=== PATIENT | female | born 1945 | race Caucasian/White ===

== ENCOUNTER 2019-06-05 16:31 | Emergency (ER) | payer OTHER ==
[~2019-06-05] VITALS: Ht 157.5 cm; Wt 72.1 kg
[~2019-06-05 16:31] MED LIST: ACLI400A3 IH; ALBU2.5V8 IH; AMLO5TAB10 PO; ASPI-482 PO; ASPI325T8 PO; CLONAZEPAM1 MG PO; FURO40TA4 PO; IBUP1TAB12 PO; Ipratropium/Albuterol Sulfate NEB; LEVO25TA4 PO; LEVO500T59 PO; LEVO50TA PO; LEVO750T31 PO; LISI-338 PO; LISI30TA4 PO; LOPE-101 PO; LORA0.5T96 PO; LORA1TAB PO; OMEP40CA45 PO; POTA10TA12 PO; POTA500T5 PO; PRAV80TA2 PO; PRED-220 PO; PRED50TA PO; SERT100T PO; SOTA80TA48 PO; metoprolol PO
[2019-06-05] MEDS ORDERED: FUROSEMIDE 40 MG/4 ML VIAL. IVP STA (16:55)
[2019-06-05] MEDS ORDERED: IPRATRPIUM/ALBUTEROL 0.5/2.5MG 3 ML NEBU. NEB STA (16:55)
--- NOTE | 2019-06-05 17:00 | PHYS DOC ---
Past Medical History Past Medical History: High Cholesterol, Hypertension, Hypothyroid, Pneumonia (SUSAN CHIU APRN) Past Surgical History: Hysterectomy Additional Past Surgical Histo: " MESH" BILATERAL CAROTID ARTERIES (SUSAN CHIU APRN) Alcohol Use: None Drug Use: None (SUSAN CHIU APRN) Adult General Chief Complaint Chief Complaint: LOWER EXTREMITY SWELLING HPI HPI Patient is a 74 year old female who presents with bilateral pedal edema. The patient states that she was recently admitted to the hospital and had her medications changed. The patient states that she was male hostile for bleeding ulcers and she was having diarrhea with coffee-ground emesis. She denies any other symptoms today. She states however that she has been having leg swelling in his been hurting to walk. (SUSAN CHIU APRN) Review of Systems Review of Systems Constitutional: Denies fever or chills [] Eyes: Denies change in visual acuity, redness, or eye pain [] HENT: Denies nasal congestion or sore throat [] Respiratory: Reports mild shortness of breath at baseline. Cardiovascular: No additional information not addressed in HPI [] GI: Denies abdominal pain, nausea, vomiting, bloody stools or diarrhea [] : Denies dysuria or hematuria [] Musculoskeletal: Denies back pain or joint pain [] Integument: Denies rash or skin lesions [] Neurologic: Denies headache, focal weakness or sensory changes [] Endocrine: Denies polyuria or polydipsia [] Complete systems were reviewed and found to be within normal limits, except as documented in this note. (SUSAN CHIU APRN) Current Medications Current Medications Current Medications Medications (Trade) Dose Ordered Sig/Efra Start Time Stop Time Status Last Admin Dose Admin Albuterol/ Ipratropium (Duoneb) 3 ml 1X STAT 06/05/19 16:55 06/05/19 16:59 DC 06/05/19 17:12 3 ML Furosemide (Lasix) 40 mg 1X STAT 06/05/19 16:55 06/05/19 16:59 DC 06/05/19 17:18 40 MG (ALVA BALTAZAR MD) Allergies Allergies Allergies Coded Allergies Type Severity Reaction Last Updated Verified No Known Drug Allergies 04/18/14 No (ALVA BALTAZAR MD) Physical Exam Physical Exam Constitutional: Well developed, well nourished, no acute distress, non-toxic appearance. [] HENT: Normocephalic, atraumatic, bilateral external ears normal, oropharynx moist, no oral exudates, nose normal. [] Eyes: PERRLA, EOMI, conjunctiva normal, no discharge. [] Neck: Normal range of motion, no tenderness, supple, no stridor. [] Cardiovascular:Heart rate regular rhythm, no murmur [] Lungs & Thorax: Bilateral breath sounds scattered wheezes. Abdomen: Bowel sounds normal, soft, no tenderness, no masses, no pulsatile masses. [] Skin: Warm, dry, no erythema, no rash. [] Back: No tenderness, no CVA tenderness. [] Extremities: Pedal edema bilaterally, 2+. Neurologic: Alert and oriented X 3, normal motor function, normal sensory function, no focal deficits noted. [] Psychologic: Affect normal, judgement normal, mood normal. [] (SUSAN CHIU APRN) Current Patient Data Vital Signs Vital Signs Date Time Temp Pulse Resp B/P (MAP) Pulse Ox O2 Delivery O2 Flow Rate FiO2 06/05/19 19:00 78 163/67 (99) 94 06/05/19 17:12 Room Air 06/05/19 16:45 98.3 18 98.3 (ALVA BALTAZAR MD) Lab Values Laboratory Tests Test 06/05/19 16:50 White Blood Count 7.8 x10^3/uL (4.0-11.0) Red Blood Count 3.51 x10^6/uL (3.50-5.40) Hemoglobin 9.1 g/dL (12.0-15.5) L Hematocrit 29.0 % (36.0-47.0) L Mean Corpuscular Volume 83 fL (79-100) Mean Corpuscular Hemoglobin 26 pg (25-35) Mean Corpuscular Hemoglobin Concent 32 g/dL (31-37) Red Cell Distribution Width 18.1 % (11.5-14.5) H Platelet Count 447 x10^3/uL (140-400) H Neutrophils (%) (Auto) 62 % (31-73) Lymphocytes (%) (Auto) 28 % (24-48) Monocytes (%) (Auto) 8 % (0-9) Eosinophils (%) (Auto) 2 % (0-3) Basophils (%) (Auto) 1 % (0-3) Neutrophils # (Auto) 4.8 x10^3/uL (1.8-7.7) Lymphocytes # (Auto) 2.1 x10^3/uL (1.0-4.8) Monocytes # (Auto) 0.6 x10^3/uL (0.0-1.1) Eosinophils # (Auto) 0.2 x10^3/uL (0.0-0.7) Basophils # (Auto) 0.1 x10^3/uL (0.0-0.2) Sodium Level 137 mmol/L (136-145) Potassium Level 4.7 mmol/L (3.5-5.1) Chloride Level 100 mmol/L (98-107) Carbon Dioxide Level 26 mmol/L (21-32) Anion Gap 11 (6-14) Blood Urea Nitrogen 27 mg/dL (7-20) H Creatinine 1.0 mg/dL (0.6-1.0) Estimated GFR (Cockcroft-Gault) 54.2 BUN/Creatinine Ratio 27 (6-20) H Glucose Level 100 mg/dL (70-99) H Calcium Level 9.5 mg/dL (8.5-10.1) Total Bilirubin 0.2 mg/dL (0.2-1.0) Aspartate Amino Transferase (AST) 16 U/L (15-37) Alanine Aminotransferase (ALT) 16 U/L (14-59) Alkaline Phosphatase 71 U/L (46-116) HS-Wsg-Q-Type Natriuretic Peptide 2613 pg/mL (0-124) H Total Protein 7.7 g/dL (6.4-8.2) Albumin 2.7 g/dL (3.4-5.0) L Albumin/Globulin Ratio 0.5 (1.0-1.7) L Laboratory Tests 06/05/19 16:50 Laboratory Tests 06/05/19 16:50 (ALVA BALTAZAR MD) Lab Values Laboratory Tests Test 06/05/19 16:50 White Blood Count 7.8 x10^3/uL (4.0-11.0) Red Blood Count 3.51 x10^6/uL (3.50-5.40) Hemoglobin 9.1 g/dL (12.0-15.5) L Hematocrit 29.0 % (36.0-47.0) L Mean Corpuscular Volume 83 fL (79-100) Mean Corpuscular Hemoglobin 26 pg (25-35) Mean Corpuscular Hemoglobin Concent 32 g/dL (31-37) Red Cell Distribution Width 18.1 % (11.5-14.5) H Platelet Count 447 x10^3/uL (140-400) H Neutrophils (%) (Auto) 62 % (31-73) Lymphocytes (%) (Auto) 28 % (24-48) Monocytes (%) (Auto) 8 % (0-9) Eosinophils (%) (Auto) 2 % (0-3) Basophils (%) (Auto) 1 % (0-3) Neutrophils # (Auto) 4.8 x10^3/uL (1.8-7.7) Lymphocytes # (Auto) 2.1 x10^3/uL (1.0-4.8) Monocytes # (Auto) 0.6 x10^3/uL (0.0-1.1) Eosinophils # (Auto) 0.2 x10^3/uL (0.0-0.7) Basophils # (Auto) 0.1 x10^3/uL (0.0-0.2) Sodium Level 137 mmol/L (136-145) Potassium Level 4.7 mmol/L (3.5-5.1) Chloride Level 100 mmol/L (98-107) Carbon Dioxide Level 26 mmol/L (21-32) Anion Gap 11 (6-14) Blood Urea Nitrogen 27 mg/dL (7-20) H Creatinine 1.0 mg/dL (0.6-1.0) Estimated GFR (Cockcroft-Gault) 54.2 BUN/Creatinine Ratio 27 (6-20) H Glucose Level 100 mg/dL (70-99) H Calcium Level 9.5 mg/dL (8.5-10.1) Total Bilirubin 0.2 mg/dL (0.2-1.0) Aspartate Amino Transferase (AST) 16 U/L (15-37) Alanine Aminotransferase (ALT) 16 U/L (14-59) Alkaline Phosphatase 71 U/L (46-116) EL-Iwx-J-Type Natriuretic Peptide 2613 pg/mL (0-124) H Total Protein 7.7 g/dL (6.4-8.2) Albumin 2.7 g/dL (3.4-5.0) L Albumin/Globulin Ratio 0.5 (1.0-1.7) L Laboratory Tests 06/05/19 16:50 Laboratory Tests 06/05/19 16:50 (SUSAN CHIU APRN) EKG EKG [] (SUSAN CHIU APRN) Radiology/Procedures Radiology/Procedures [] (SUSAN HCIU APRN) Course & Med Decision Making Course & Med Decision Making Pertinent Labs and Imaging studies reviewed. (See chart for details) Patient is taking 40 mg of Furosemide PO at home. Patient legs have started swelling over the last several days. Will give IV furosemide (BP is 192/74). Patient has follow up with Dr. Schafer on Monday. Will also get labs and chest x-ray. Will give breathing treatment. Hemoglobin is 9.1 which has improved since her recent admission. BNP is 2613. Labs are otherwise unremarkable. Patient appears to be fluid overloaded. Will have follow up with Dr. Schafer and take double her lasix dose the next two days. (SUSAN CHIU APRN) Course & Med Decision Making I was not involved care of this patient after 1800 on 06/05/2019 (ALVA BALTAZAR MD) Dragon Disclaimer Dragon Disclaimer This electronic medical record was generated, in whole or in part, using a voice recognition dictation system. (SUSAN CHIU APRN) Departure Departure Impression: Primary Impression: Pedal edema Disposition: 01 HOME, SELF-CARE Condition: STABLE Referrals: JOSE FRANCISCO SCHAFER MD (PCP) Additional Instructions: Thank you for visiting [facility]. We appreciate you trusting us with your care. If any additional problems come up don't hesitate to return to visit us. Please follow up with your primary care provider so they can plan additional care if needed and know about the problem that you had. If symptoms worsen come back to the Emergency Department. Any concerning symptoms that start such as chest pain, shortness of air, weakness or numbness on one side of the body, running high fevers or any other concerning symptoms return to the ER. Please double your lasix dose the next two days and then follow up with Dr. Schafer on Monday. SUSAN CHIU APRN Jun 05, 2019 17:00 ALVA BALTAZAR MD Jun 07, 2019 09:09
[2019-06-05 17:11] LABS: BASO # 0.1 x10^3/uL (0.0-0.2); BASO % 1 % (0-3); EOS # 0.2 x10^3/uL (0.0-0.7); EOS % 2 % (0-3); HEMOGLOBIN 9.1 g/dL (12.0-15.5); LYMPH # 2.1 x10^3/uL (1.0-4.8); LYMPH % 28 % (24-48); MEAN CORPUSCULAR HEMOGLOBIN 26 pg (25-35); MEAN CORPUSCULAR HGB CONC 32 g/dL (31-37); MEAN CORPUSCULAR VOLUME 83 fL (79-100); MONO # 0.6 x10^3/uL (0.0-1.1); MONO % 8 % (0-9); NEUT # 4.8 x10^3/uL (1.8-7.7); NEUT % 62 % (31-73); PLATELET COUNT 447 x10^3/uL (140-400); RED BLOOD COUNT 3.51 x10^6/uL (3.50-5.40); RED CELL DISTRIBUTION WIDTH 18.1 % (11.5-14.5); WHITE BLOOD COUNT 7.8 x10^3/uL (4.0-11.0)
[2019-06-05 17:19] LABS: CALCIUM 9.5 mg/dL (8.5-10.1); GFR 54.2; POTASSIUM 4.7 mmol/L (3.5-5.1)
[2019-06-05 17:24] LABS: ALBUMIN 2.7 g/dL (3.4-5.0); ALBUMIN/GLOBULIN RATIO 0.5 (1.0-1.7); TOTAL BILIRUBIN 0.2 mg/dL (0.2-1.0); TOTAL PROTEIN 7.7 g/dL (6.4-8.2)
[2019-06-05 19:00] VITALS: BP 163/67
--- NOTE | 2019-06-06 02:55 | RAD ---
CHEST PA LATERAL INDICATION: Dyspnea. COMPARISON STUDY: CT 05/29/2019. FINDINGS: Lungs: Normal lung volume. No pulmonary mass or consolidation. The tracheobronchial tree and hilar structures are normal. Pleura: No pleural effusion or pneumothorax. Heart and Mediastinum: The cardiomediastinal silhouette is normal. Atherosclerotic thoracic aorta. Bones and Soft Tissues: Degenerative changes of the spine. IMPRESSION: No consolidation. Electronically signed by: José Morales MD (06/06/2019 2:52 AM) [id number]
== END 2019-06-05 19:35 | disposition home or self-care (01) ==
LOC: ER 16:31
DX: R60.0 Localized edema (principal); E78.00 Pure hypercholesterolemia, unspecified; I10 Essential (primary) hypertension; E03.9 Hypothyroidism, unspecified; Z90.710 Acquired absence of both cervix and uterus
CPT/HCPCS: 36415; 71046; 80053; 83880; 85025; 94640; 96374; 99285; J1940; J7620

== ENCOUNTER → 2019-06-27 | Outpatient (CLI) | payer OTHER ==
[2019-06-05 19:00] VITALS: BP 163/67
--- NOTE | 2019-06-27 12:33 | CARD ---
MR#: [id number] Date of Study: 06/27/2019 Ordering Physician: JONAS MONAHAN, Referring Physician: JONAS MONAHAN, Tech: Emilee Dominique APPROVED REPORT EXAM: Two-dimensional and M-mode echocardiogram with Doppler and color Doppler. Other Information Quality : AverageHR: 112bpm Technically limited study due to body habitus. INDICATION Arrhythmia RISK FACTORS Hypertension Hyperlipidemia Smoking 2D DIMENSIONS RVDd2.2 (2.9-3.5cm)Left Atrium(2D)3.8 (1.6-4.0cm) IVSd0.8 (0.7-1.1cm)Aortic Root(2D)2.6 (2.0-3.7cm) LVDd4.4 (3.9-5.9cm)LVOT Diameter1.9 (1.8-2.4cm) PWd1.1 (0.7-1.1cm)LVDs2.9 (2.5-4.0cm) FS (%) 35.6 %SV58.7 ml LVEF(%)65.2 (>50%) Aortic Valve AoV Peak Aniceto.157.3cm/sAoV VTI26.8cm AO Peak GR.9.9mmHgLVOT Peak Aniceto.135.1cm/s LVOT VTI 22.90cmAO Mean GR.5mmHg CLARE (VMAX)1.99hx8PSO (VTI)2.42cm2 AI P 1/2 [id number] Mitral Valve MV E Brzuuhtr14.4cm/sMV DECEL PIBS561pm MV A Xscphdql14.1cm/sMV E Mean Gr.2mmHg MV [id number]/A Ratio1.1 MVA (PHT)3.67cm2 TDI E/Lateral E'9.5E/Medial E'14.0 Pulmonary Valve PV Peak Bmzznrij799.7cm/sPV Peak Grad.5mmHg Tricuspid Valve TR P. Tqzejgft347co/sTR Peak Gr.23mmHg Pulmonary Vein S1 Ddorvepl83.3cm/sD2 Bnvxfjdv07.0cm/s LEFT VENTRICLE The left ventricle is normal size. There is borderline to mild concentric left ventricular hypertroph y. The Ejection Fraction is 55%. The left ventricular systolic function is normal and the ejection fr action is within normal range. There is grossly normal wall motion. Technically limited images. Trans mitral Doppler flow pattern is Grade II-pseudonormal filling dynamics. RIGHT VENTRICLE The right ventricle is normal size. There is normal right ventricular wall thickness. The right ventr icular systolic function is normal. ATRIA The left atrium size is normal. The right atrium size is normal. The interatrial septum bows toward r ight atrium consistent with elevated left atrial pressure. AORTIC VALVE The aortic valve is calcified Doppler and Color Flow revealed trace aortic regurgitation. There is no significant aortic valvular stenosis. MITRAL VALVE The mitral valve is thickened but opens well. There is no evidence of mitral valve prolapse. There is no mitral valve stenosis. Doppler and Color-flow revealed trace mitral regurgitation. TRICUSPID VALVE The tricuspid valve is normal in structure and function. Doppler and Color Flow revealed trace tricus pid regurgitation with an estimated PAP of 33 mmHg. There is no tricuspid valve stenosis. PULMONIC VALVE The pulmonic valve is not well visualized. Doppler and Color Flow revealed no pulmonic valvular regur gitation. There is no pulmonic valvular stenosis. GREAT VESSELS The aortic root is normal in size. The IVC is normal in size and collapses >50% with inspiration. PERICARDIAL EFFUSION There is no evidence of significant pericardial effusion. Critical Notification Critical Value: No <Conclusion> The Ejection Fraction is 55%. The left ventricular systolic function is normal and the ejection fract ion is within normal range. There is grossly normal wall motion. Technically limited images. Signed by : Oracio Lake, Electronically Approved : 06/27/2019 12:33:08
== END | disposition home or self-care (01) ==
LOC: ECHO 10:44
PROVIDERS: ATTEND Internal Medicine Cardiovascular Disease
DX: I08.0 Rheumatic disorders of both mitral and aortic valves (principal); I49.9 Cardiac arrhythmia, unspecified
CPT/HCPCS: 93306